=== PATIENT | male | born 1985 | race Asian ===

== ENCOUNTER 2019-08-06 12:11 | Inpatient (IN) | payer SELFPAY ==
[~2019-08-06] VITALS: Ht 177.8 cm; Wt 123.1 kg
[2019-08-06 12:28] VITALS: Ht 177.8 cm; Wt 123.1 kg
--- NOTE | 2019-08-06 12:40 | NUR ---
PT C/O DULL MUQ PAIN RADIATING TO LUQ AND RUQ SINCE YESTERDAY WITH CONSTIPATION, PT DENIES ANY EPISODES OF VOMITING, ACTIVE BLEEDING. AND/OR RECENT TRAUMA AND/OR INJURY, PT ALSO DENIES ANY HX ULCERS, LIVER AND/OR GALL BLADDER PROBLEMS, PT AAOX4, SKIN PINK DRY WARM ,PT AFEBRILE, ABD ROUND WITH HYPOACTIVE BOWEL SOUNDS NOTED,PT IN NAD AWAITING MSE
--- NOTE | 2019-08-06 13:40 | NUR ---
PT RESTING IN POSITION OF COMFORT, RESPS E/U, CALL LIGHT WITHIN REACH
[2019-08-06 14:19] LABS: UA SPECIFIC GRAVITY >=1.030 (1.005-1.035); microscopic required? YES; urine erythrocyte 2+ (NEGATIVE)
--- NOTE | 2019-08-06 14:31 | NUR ---
PORTABLE US AT BEDSIDE
[2019-08-06 14:44] LABS: AMPHETAMINE QUAL UR NONE DETECTED (See below)
[2019-08-06 14:52] LABS: ALBUMIN 3.5 g/dL (3.4-5.0); ALKALINE PHOSPHATASE 102 U/L (46-116); BILIRUBIN TOTAL 1.8 mg/dL (0.20-1.00); CALCIUM 8.5 mg/dL (8.5-10.1); CARBON DIOXIDE 12.5 mmol/L (21-32); CHLORIDE SERUM 93 mmol/L (98-107); GFR1 > 60 mL/min; GLUCOSE SERUM 345 mg/dL (74-106); POTASSIUM SERUM 3.9 mmol/L (3.5-5.1); SODIUM SERUM 128 mmol/L (136-145); T4(THYROXINE) 8.6 ug/dL (4.7-13.3)
[2019-08-06 15:06] LABS: PLATELET COUNT 351 x10^3mcL (130-400)
[2019-08-06 15:10] LABS: BASOPHIL % 0 % (0-2); RED CELL DISTRIBUTION WIDTH 15.4 % (11.5-14.5)
[2019-08-06 15:21] LABS: AST/SGOT 59 U/L (15-37)
--- NOTE | 2019-08-06 15:23 | NUR ---
PT TAKEN TO CT VIA ALEX
[2019-08-06 15:25] LABS: HDL CHOLESTEROL 24 mg/dL (40-60)
[2019-08-06 15:26] LABS: TOTAL PROTEIN, SERUM 8.2 g/dL (6.4-8.2)
[2019-08-06 15:27] LABS: LIPASE 4235 IU/L (73-393)
[2019-08-06 15:28] LABS: CHOLESTEROL 269 mg/dL (<200)
[2019-08-06 15:53] LABS: ALT/SGPT 47 U/L (16-63); CREATININE SERUM 0.6 mg/dL (0.7-1.3)
--- NOTE | 2019-08-06 15:53 | NUR ---
MD BORREGO AT BEDSIDE DISCUSSING PLAN OF CARE
[2019-08-06] MEDS ORDERED: LISINOPRIL2.5 MG PO (15:54)
[2019-08-06] MEDS ORDERED: METFORMIN500 M1 PO (15:54)
[2019-08-06] MEDS ORDERED: GLUCOTROL10 MG PO (15:54)
[2019-08-06] MEDS ORDERED: FENOFIBRATE MI134 MG PO (15:55)
[2019-08-06] MEDS ORDERED: CITALOPRAM HYDR10 M1 PO (15:55)
[2019-08-06] MEDS ORDERED: ABILIFY MYCITE2 MG PO (15:56)
--- NOTE | 2019-08-06 15:58 | NUR ---
PT RESTING IN POSITION OF COMFORT, PT REPORTS "PAIN A LOT BETTER" RESPS E/U, NS INFUSING PER EMAR, CALL LIGHT WITHIN REACH
--- NOTE | 2019-08-06 16:50 | NUR ---
REPORT GIVEN TO ISAAK AUSTIN, TO ASSUME CARE OF PT.
[2019-08-06 17:50] LABS: AMYLASE 322 U/L (25-115)
[2019-08-06 17:52] LABS: CHOLESTEROL 276 mg/dL (<200); HDL CHOLESTEROL 23 mg/dL (40-60); TRIGLYCERIDES 2588 mg/dL (<150)
--- NOTE | 2019-08-06 17:53 | NUR ---
PATIENT ARRIVED FROM ED. PATIENT OBSERVED AMBULATING. COMPLAINTS OF UPPER ABDOMINAL PAIN 09/06, STATES HE HAS NOT HAD A BM IN TWO DAYS AND CLAIMS HE REGULARLY GOES EVERY DAY. ON ROOM AIR, SINUS TACH DENIES CP OR SOB. NO EDEMA NOTED. DR ROBISON IN TO SPEAK WITH PATIENT ABOUT PLAN OF CARE INCLUDING TRENDING AMYLASE AND LIPASE, IV HYDRATION, AND NPO STATUS. POSSIBLE GI CONSULT. INSTRUCTED PATIENT ON USE OF CALL LIGHT AND BED CONTROLS, ALL QUESTIONS ANSWERED AT THIS TIME.
[2019-08-06 18:41] VITALS: BP 129/61
--- NOTE | 2019-08-06 18:53 | NUR ---
PATIENT HAS NO COMPLAINTS AT THIS TIME, WILL ENDORSE TO ONCOMING NURSE.
[2019-08-06 19:20] VITALS: BP 131/79
--- NOTE | 2019-08-06 19:20 | NUR ---
RECEIVED PT AWAKE ALERT AND VERBALLY RESPONSIVE.DENIES CHESTPAIN AT THIS TIME.BP 131/79 MMHG,HR 126/ID 2/10 TO ACHING LLQ PAIN.ENCOURAGED TO CALL FOR ASSISTANCE AT ALL TIMES.WIOLL CONTINUE TO MONITOR.
--- NOTE | 2019-08-06 20:29 | NUR ---
COMPUTED ANION GAP @ 24.4.DR. BOOKER MADE AWARE.NO NNO AT THIS TIME.
--- NOTE | 2019-08-06 21:01 | NUR ---
BS CHECKED AT 295 MG/DL.COVERED WITH 9 UNITS REGULAR INSULIN AND 10 UNITS LANTUS ORDERED.WILL CONTINUE TO MONITOR
--- NOTE | 2019-08-06 22:02 | NUR ---
FOLLOW UP CALL MADE WITH DR. BOOKER AND PT WILL STAY ON THE UNIT.
[2019-08-06 23:15] LABS: CALCIUM 8.6 mg/dL (8.5-10.1); CARBON DIOXIDE 11.7 mmol/L (21-32); CHLORIDE SERUM 100 mmol/L (98-107); CREATININE SERUM 0.6 mg/dL (0.7-1.3); GFR1 > 60 mL/min; GLUCOSE SERUM 285 mg/dL (74-106); POTASSIUM SERUM 3.7 mmol/L (3.5-5.1); SODIUM SERUM 133 mmol/L (136-145)
--- NOTE | 2019-08-07 | NUR ---
REPORTED BMP RESULT .COMPUTED ANION GAP @ 21.3.DR. BOOKER MADE AWARE.AWAITING FOR ORDER.
--- NOTE | 2019-08-07 00:31 | NUR ---
RECEIVED ORDER FOR ICU TRANSFER
[2019-08-07 01:15] VITALS: BP 134/82
--- NOTE | 2019-08-07 01:15 | NUR ---
RECEIVED PT FROM [facility] ARRIVED TO ICU BED 1 ACCOMPANIED BY MONIE RN AND HANDYMAN VIA WHEEL CHAIR. PT TRANSFERRED TO ICU BED 1 WITH NO COMPLICATIONS STEADY GAIT ONTO BED. RECEIVED PT AOX4 ABLE TO RESPOND TO COMMANDS, MAKE NEEDS KNOWN. SPEECH CLEAR. GCS=15. PUPILS BRISK RESPONSE TO LIGHT B/L, 4MM PERRLA. TRACHEA MIDLINE, NO DRAINAGE TO EENT. NO EENT COMPLAINTS. DENIES HEADACHE OR DIZZINESS. S1/S2 SOUNDS. NO S/S OF CHEST PAIN, PT DENIES CHEST PAIN.SKIN COLOR CONSISTENT WITH ETHNICITY, CAP REFILL <3 SEC X4 EXTREMITIES, PULSES MODERATE X4 EXTREMITES, NO EDEMA. NS INFUSING @ 150 ML/HR TITRATED TO 250 ML/HR PER DKA PROTOCOL/MD ORDER. RIGHT THUMB IV 24 G PORT PATENT, NO INFILTRATION, DRESSING CDI.ROM ACTIVE. NO CONTRACTURES/DEFORMITIES NOTED. BSC. JOINTS INTACT.NPO AT THIS TIME. NO S/S OF N/V.ACTIVE BOWEL SOUNDS X4 QUADRANTS, ABD SOFT/ROUND, NO BM. PT REPORTS MILD DISCOMFORT/PAIN TO LUQ 1/10 PAIN BUT TOLERABLE.PT ABLE TO VOID WITH BEDSIDE URINAL. NO PENILE EDEMA/DISCHARGE. NO URINARY COMPLAINTS.SKIN INTACT, WARM/DRY TO TOUCH. BED AT LOWEST SETTING, CALL LIGHT WITHIN REACH, HOB ELEVATED 30 DEGREES PER PT COMFORT. TEACHIGN PROVIDED. WILL CONT TO MONITOR.
--- NOTE | 2019-08-07 01:17 | NUR ---
WHEN ASKED IF HE WANTED FAMILY TO BE NOTIFIED OF ICU TRANSFER, HE STATED HE ALREADY TOLD HIS MOM AND WOULD INFORM HER AGAIN IN MORNING.
--- NOTE | 2019-08-07 01:18 | NUR ---
pt tranderred to icu.all belongings sent with pt.in no distress.
--- NOTE | 2019-08-07 01:20 | NUR ---
IV INITIATED TO LEFT HAND 22 G, PORT PATENT, +BLOOD RETURN, NO S/S OF INFILTRATION, DRESSING CDI,
--- NOTE | 2019-08-07 01:25 | NUR ---
CLARIFIED WITH DR. BOOKER ON LABS AND IVF ORDERED ON EMAR. PER DR. BOOKER SHE WILL D/C THE DUPILICATED FLUIDS AND FOLLOW DKA PROTOCOL. PER DR. BOOKER PT DOES NOT NEED VBG ORDERED. WILL CARRY OUT ORDERS.
[2019-08-07 03:21] VITALS: BP 130/88
[2019-08-07 05:07] LABS: ALKALINE PHOSPHATASE 91 U/L (46-116); ALT/SGPT 34 U/L (16-63); AST/SGOT 15 U/L (15-37); BILIRUBIN TOTAL 1.14 mg/dL (0.20-1.00); CALCIUM 8.8 mg/dL (8.5-10.1); CARBON DIOXIDE 13.9 mmol/L (21-32); CHLORIDE SERUM 101 mmol/L (98-107); CREATININE SERUM 0.7 mg/dL (0.7-1.3); GFR1 > 60 mL/min; GLUCOSE SERUM 232 mg/dL (74-106); MAGNESIUM 1.8 mg/dL (1.8-2.4); PHOSPHOROUS 1.8 mg/dL (2.5-4.9); POTASSIUM SERUM 3.2 mmol/L (3.5-5.1); SODIUM SERUM 132 mmol/L (136-145); TOTAL PROTEIN, SERUM 7.3 g/dL (6.4-8.2)
--- NOTE | 2019-08-07 05:09 | NUR ---
BLOOD SUGAR 196, D5 1/2 NS GTT INTIATED @ 150 ML/HR PER DKA PROTOCOL. INSULIN GTT TITRATED TO 0.05 UNITS/KG/HR. NS GTT HELD AT THIS TIME.
[2019-08-07 05:11] LABS: BASOPHIL % 0.4 % (0-2); PLATELET COUNT 257 x10^3mcL (130-400)
[2019-08-07 05:12] LABS: AMYLASE 184 U/L (25-115); LIPASE 1865 IU/L (73-393)
[2019-08-07 05:21] LABS: RED CELL DISTRIBUTION WIDTH 15.1 % (11.5-14.5)
--- NOTE | 2019-08-07 07:00 | NUR ---
AAO TIMES 4. HEART RATE ST 123. LUNGS CTA. NO SOB. O2 SAT ON RA 96%. BS'S ACTIVE TIMES 4. MCKEON STRONG. IV SITE LEFT HAND PATENT, CDI. COOPERATIVE AND PLEASANT. NPO. INSULIN DRIP 0.05 UNITS PER KG/HOUR, AT 6.12 UNTIS PER HOUR. IV IS D5 1/2 AT 150 ML PER HOUR.
--- NOTE | 2019-08-07 07:20 | NUR ---
GAVE REPORT TO GEOVANNA LYON. UPDATES GIVEN, QUESTIONS ANSWERED. ENDORSED CARE.
[2019-08-07 07:51] VITALS: BP 147/83
--- NOTE | 2019-08-07 08:00 | NUR ---
ANION GAP FROM 0800 BMP IS 13.
[2019-08-07 09:02] LABS: CALCIUM 8.5 mg/dL (8.5-10.1); CHLORIDE SERUM 101 mmol/L (98-107); CREATININE SERUM 0.7 mg/dL (0.7-1.3); GFR1 > 60 mL/min; GLUCOSE SERUM 233 mg/dL (74-106); MAGNESIUM 1.8 mg/dL (1.8-2.4); PHOSPHOROUS 1.6 mg/dL (2.5-4.9); POTASSIUM SERUM 3.3 mmol/L (3.5-5.1); SODIUM SERUM 132 mmol/L (136-145)
--- NOTE | 2019-08-07 12:00 | NUR ---
ANION GAP FROM 1200 BMP IS 13.
[2019-08-07 12:18] VITALS: BP 142/78
[2019-08-07 12:49] LABS: CALCIUM 8.8 mg/dL (8.5-10.1); CHLORIDE SERUM 103 mmol/L (98-107); CREATININE SERUM 0.7 mg/dL (0.7-1.3); GFR1 > 60 mL/min; GLUCOSE SERUM 229 mg/dL (74-106); MAGNESIUM 1.9 mg/dL (1.8-2.4); PHOSPHOROUS 1.8 mg/dL (2.5-4.9); POTASSIUM SERUM 3.5 mmol/L (3.5-5.1); SODIUM SERUM 135 mmol/L (136-145)
--- NOTE | 2019-08-07 15:30 | NUR ---
Discount pharmacy card and list to low cost medical clinics given to patient by Dex Diop.
[2019-08-07 16:17] LABS: CALCIUM 8.6 mg/dL (8.5-10.1); CHLORIDE SERUM 100 mmol/L (98-107); CREATININE SERUM 0.6 mg/dL (0.7-1.3); GFR1 > 60 mL/min; GLUCOSE SERUM 235 mg/dL (74-106); MAGNESIUM 1.7 mg/dL (1.8-2.4); PHOSPHOROUS 1.6 mg/dL (2.5-4.9); POTASSIUM SERUM 3.5 mmol/L (3.5-5.1); SODIUM SERUM 130 mmol/L (136-145)
[2019-08-07 16:35] VITALS: BP 118/71
--- NOTE | 2019-08-07 16:43 | NUR ---
ANION GAP 9, THIS IS THE FIRST ANION GAP BELOW 12. WILL NOTIFY ONCOMING NURSE.
--- NOTE | 2019-08-07 18:15 | NUR ---
AAO TIMES 4. INSULIN DRIP AT 6.12 UNITS PER HOUR/0.05 UNITS/KG/HOUR. IV SITE CDI. COOPERATIVE. TOLERATING CLEAR LIQUID DIET. NO C/O PAIN. NO SOB. VS'S STABLE.
--- NOTE | 2019-08-07 19:54 | NUR ---
Awake in bed. Verbally responsive. No respiratory distress noted on room air. Denies pain. Denies n/v. On insulin drip @ 0.05units/kg/hr. Cont.to monitor. Call light within reach. Cont.to monitor lab values.
[2019-08-07 20:00] VITALS: BP 118/74
[2019-08-07 21:01] LABS: CALCIUM 8.6 mg/dL (8.5-10.1); CARBON DIOXIDE 19.1 mmol/L (21-32); CHLORIDE SERUM 100 mmol/L (98-107); CREATININE SERUM 0.6 mg/dL (0.7-1.3); GFR1 > 60 mL/min; GLUCOSE SERUM 229 mg/dL (74-106); MAGNESIUM 1.7 mg/dL (1.8-2.4); PHOSPHOROUS 1.6 mg/dL (2.5-4.9); POTASSIUM SERUM 3.3 mmol/L (3.5-5.1); SODIUM SERUM 130 mmol/L (136-145)
--- NOTE | 2019-08-07 22:00 | NUR ---
Anion gap closed x2 notified. Orders received and carried out. Pt. aware.
--- NOTE | 2019-08-07 23:57 | NUR ---
Asleep at this time. No cues of pain. No SOB noted. IVF infusing.
[2019-08-08] VITALS: BP 108/68
[2019-08-08 04:00] VITALS: BP 126/73
--- NOTE | 2019-08-08 04:38 | NUR ---
Afebrile. No significant change in condition noted. No s/s of hypo/hyperglycemia. Denies pain. Denies n/v. In no apparent distress.
[2019-08-08 05:33] LABS: BASOPHIL % 0.2 % (0-2); PLATELET COUNT 217 x10^3mcL (130-400)
[2019-08-08 05:34] LABS: CHLORIDE SERUM 99 mmol/L (98-107); CREATININE SERUM 0.5 mg/dL (0.7-1.3); GFR1 > 60 mL/min; GLUCOSE SERUM 247 mg/dL (74-106); MAGNESIUM 1.7 mg/dL (1.8-2.4); PHOSPHOROUS 2.3 mg/dL (2.5-4.9); POTASSIUM SERUM 3.3 mmol/L (3.5-5.1); RED CELL DISTRIBUTION WIDTH 15.1 % (11.5-14.5); SODIUM SERUM 131 mmol/L (136-145)
--- NOTE | 2019-08-08 07:31 | NUR ---
RECEIVED PT'S REPORT FROM LEAVING NURSE. PER REPORT PT'S GAP CLOSED LAST NIGHT AROUND 10PM, LANTUS WAS GIVEN. PT IS AA/O X4, SITTING ON BED, DENIED DISCOMFORT, BUT CONSTIPATION. PT BREATHING ON RA, EVEN, UNLABORED. HR AROUND 110s WITHOUT CHEST DISCOMFORT REPORTED. IV SITE PATENT, INTACT. IVF INFUSING AT 70ML/HR PER ORDER. WILL CONTINUE PT CARE.
[2019-08-08 07:45] VITALS: BP 112/69
--- NOTE | 2019-08-08 08:31 | NUR ---
DR. OLIVIER ASSESSED PT AT BEDSIDE, AND PUT PT ON CPAP MODE AT THIS TIME, FIO2 30%, PEEP 5, PSV 12.
--- NOTE | 2019-08-08 10:23 | NUR ---
DR. PIERRE MADE MORNING ROUND WITH MEDICAL TEAM. PT CONDITION UPDATED. WAITING FOR NEW ORDER.
[2019-08-08 12:25] VITALS: BP 116/74
[2019-08-08 13:03] LABS: CALCIUM 8.8 mg/dL (8.5-10.1); CARBON DIOXIDE 22.3 mmol/L (21-32); CHLORIDE SERUM 98 mmol/L (98-107); CREATININE SERUM 0.5 mg/dL (0.7-1.3); GFR1 > 60 mL/min; GLUCOSE SERUM 232 mg/dL (74-106); POTASSIUM SERUM 3.7 mmol/L (3.5-5.1); SODIUM SERUM 130 mmol/L (136-145)
[2019-08-08 15:45] VITALS: BP 125/79
--- NOTE | 2019-08-08 15:45 | NUR ---
ADMITTED TRANSFER FR.ICU.REPORT GIVEN BY GEOVANNA FORD.AAO X4.DENIES ANY PAIN/DISCOMFORT.LUNGS CLEAR.ON ST ON MONITOR 10,VO=172.IVF RESUMED NS AT 70 ML/HR INFUUSING WELL ON L HAND.CALL LIGHT WITHIN REACH.INSTRUCTED TO CALL FOR ANY PAIN/DISCOMFORT.WILL CONTINUE TO MONITOR PT.
--- NOTE | 2019-08-08 18:25 | NUR ---
NO SIGNIFICANT CHANGE NOTED.WILL ENDORSE TO NEXT SHIFT.
--- NOTE | 2019-08-08 19:30 | NUR ---
PT RECIEVED TO DAY NURSE. PT RESTING IN BED AT THIS TIME. PT A/O X4, CALM AND COOPERTIVE AT THIS TIME. TELE 10, SINUS TACH AT THIS TIME. DENIES CP, NV, DIZZINESS, OR PALPATATIONS. PALPABLE PULSES, NO EDEMA NOT AT THIS TIME. BREATHIGN E/U ON RA AT THIS TIME. ABD SOFT AND ROUND, STATES PAIN TO LUQ ON PALPATION. DENIES NEED FOR PAIN MEDS. IV TO L HAND, CDI. BED AT LOWEST POSITION. CALL LIGHT WITHIN REACH. WILL CONTINUE TO MONITOR.
[2019-08-08 20:04] VITALS: BP 131/84
--- NOTE | 2019-08-08 23:03 | NUR ---
PT NOT READY TO GO ON CPAP AT THIS TIME, HE WAS ADVISD TO CALL WHEN HE IS READY.
--- NOTE | 2019-08-09 | NUR ---
PT RESTING IN BED AT THIS TIME. PT DENIES PAIN OR DISCOMFORT. BREATHIGN E/U ON RA. NO SIGNS OF ACUTE DISTRESS AT THIS TIME. BED AT LOWEST POSITION. CALL LIGHT WITHIN REACH. WILL CONTINUE TO MONTIOR.
[2019-08-09 06:15] LABS: BASOPHIL % 1.2 % (0-2); PLATELET COUNT 251 x10^3mcL (130-400)
[2019-08-09 06:22] VITALS: BP 142/93
[2019-08-09 06:25] LABS: RED CELL DISTRIBUTION WIDTH 15.1 % (11.5-14.5)
--- NOTE | 2019-08-09 06:28 | NUR ---
PT RESTING IN BED AT THIS TIME. DENIES PAIN OR DISCOMFRT. BREATHING E/U ON RA. NO SIGNS OF ACUTE DISTRESS NOTED AT THIS TIME. ALL NEEDS AND CONCERNS ADDRESSED THIS SHIFT. BED AT LOWST POSITION. CALL LIGHT WITHIN REACH. WILL ENDORSE TO DAY NURSE.
[2019-08-09 06:30] LABS: CALCIUM 8.8 mg/dL (8.5-10.1); CHLORIDE SERUM 97 mmol/L (98-107); CREATININE SERUM 0.6 mg/dL (0.7-1.3); GFR1 > 60 mL/min; GLUCOSE SERUM 227 mg/dL (74-106); MAGNESIUM 1.8 mg/dL (1.8-2.4); PHOSPHOROUS 4.2 mg/dL (2.5-4.9); POTASSIUM SERUM 3.4 mmol/L (3.5-5.1); SODIUM SERUM 132 mmol/L (136-145)
--- NOTE | 2019-08-09 07:30 | NUR ---
RECEIVED PATIENT IN BED, ALERT ORIENTED ABLE TO VERBALIZE NEEDS WELL. IVF INFUSING WELL TO LT HAND. HL PATENT OF RT THUMB, FLUSHED WELL. RESP EVEN AND UNLABORED, LUNGS CLEAR ON ROOM AIR. PT USING BIPAP AT NOC. ABD SOFT AND ROUND, BOWEL SOUNDS ACTIVE. DENIES ANY N/V/D. TELE 10 ST HR 109. AMBULATES AD MAYI. NO ACUTE DISTRESS NOTED.
[2019-08-09 07:58] VITALS: BP 125/82
--- NOTE | 2019-08-09 11:00 | NUR ---
I HAVE REVIEWED THE DATA COLLECTION BY TAFE TEACHER (NAME): ENTERED ON (DATE/TIME): I CONCUR WITH THE DATA AND ANY EXCEPTIONS OR COMMENTS ARE LISTED BELOW: PATIENT'S PLAN OF CARE WAS DISCUSSED AND REVIEWED WITH TAFE TEACHER:ANISH BLAIR
[2019-08-09 11:36] VITALS: BP 149/93
--- NOTE | 2019-08-09 14:06 | NUR ---
PATIENT READY FOR D/C HOME. HL AND TELE DC'D. DIABETIC EDUCATION PROVIDED. PATIENT INSTRUCTED ON INJECTION SELF AND DRAWING UP INSULIN. PATIENT WAS ABLE TO DRAW UP INSULIN AND INJECT SELF ORDERED. PATIENT VERBALIZES THAT HE FEELS COMFORTABLE WITH THE DRAWING UP ON INSULIN AND INJECTING HIMSELF. PER PATIENT HE IS ALREADY KNOWS HOW TO CHECK HIS BLOOD SURGARS AND HE WAS REMINDED ON THE NEED TO RECORD RESULTS AND TAKE THEM TO ALL DRS APPTS. DISCHARGE INSTRUCITONS AND PRESCRIPTIONS GIVEN. CONDITION APPEARS STABLE AT THIS TIME.
== END 2019-08-09 14:06 | disposition home or self-care (01) | DRG 637 ==
LOC: ED 12:11 → IC 16:18 → MU 16:18 → IC 08-07 01:15 → DU 08-08 15:28
PROVIDERS: Emergency Medicine; ADMIT Internal Medicine
DX: E11.10 Type 2 diabetes mellitus with ketoacidosis without coma (principal); K85.90 Acute pancreatitis without necrosis or infection, unspecified; N17.0 Acute kidney failure with tubular necrosis; E87.1 Hypo-osmolality and hyponatremia; E87.2 Acidosis; F50.81 Binge eating disorder; E86.0 Dehydration; E87.8 Other disorders of electrolyte and fluid balance, not elsewhere classified; R74.0 Nonspecific elevation of levels of transaminase and lactic acid dehydrogenase [LDH]; E78.1 Pure hyperglyceridemia; E83.42 Hypomagnesemia; G47.33 Obstructive sleep apnea (adult) (pediatric); K76.0 Fatty (change of) liver, not elsewhere classified; F32.9 Major depressive disorder, single episode, unspecified; E66.9 Obesity, unspecified; Z68.38 Body mass index [BMI] 38.0-38.9, adult; Z83.3 Family history of diabetes mellitus; Z79.899 Other long term (current) drug therapy; Z79.84 Long term (current) use of oral hypoglycemic drugs
CPT/HCPCS: 36600; 82962; 83880; 94150; C9113; G0378; G0480; J1815; J1885; J3475; J7030; J7620; Q0092